=== PATIENT | female | born 1960 | race Caucasian/White ===

== ENCOUNTER 2020-12-30 06:14 | Inpatient (IN) ==
[2020-12-30] MEDS ORDERED: *HR* Propofol 200 MG/20 ML VIAL IVP ONE ×2 (06:25)
[2020-12-30] MEDS ORDERED: *HR* FentaNYL (PF) 100 MCG/2 ML VIAL ONE (06:26)
[2020-12-30] MEDS ORDERED: *HR* Midazolam HCl 2 MG/2 ML VIAL ONE (06:26)
[2020-12-30] MEDS ORDERED: Lidocaine -MPF 2% 2 ML VIAL ONE ×2 (06:30→06:31)
[2020-12-30] MEDS ORDERED: Lidocaine HCL 4 ML Topical Solution (Laryng-O-Jet Kit Sterile Pak) TP ONE (06:30)
[2020-12-30] MEDS ORDERED: *HR* Rocuronium Bromide 50 MG/5 ML VIAL ONE ×2 (06:30→09:03)
[2020-12-30] MEDS ORDERED: Ondansetron 4 MG/2 ML VIAL ONE (06:30)
[2020-12-30] MEDS ORDERED: *HR* Succinylcholine 200 MG/10 ML VIAL IVP ONE (06:30)
[2020-12-30] MEDS ORDERED: *HR* Phenylephrine 10 MG/ML VIAL ONE (06:30)
[2020-12-30] MEDS ORDERED: Acetaminophen IV 1,000 MG/100 ML BAG IVPB ONE (06:45)
[2020-12-30] MEDS ORDERED: *HR* Vasopressin 20 UNIT/ML VIAL ONE (06:45)
[2020-12-30] MEDS ORDERED: CeFAZolin Syr 2,000MG/20 ML 2,000 MG/20 ML SYRINGE IVPB ONE (06:50)
[2020-12-30] MEDS ORDERED: *HR* Magnesium Sulfate 1 GM/2 ML VIAL ONE (07:00)
[2020-12-30] MEDS ORDERED: Ringers Solution, Lactated 1,000 ML IVC SCH ×2 (07:00→07:15)
[2020-12-30] MEDS ORDERED: Ondansetron 4 MG/2 ML VIAL IVP PRN ×2 (07:06→12:19)
[2020-12-30] MEDS ORDERED: *HR* OxyCODONE Immed Rel 5 MG TABLET PO PRN (07:06)
[2020-12-30] MEDS ORDERED: Sugammadex Sodium 200 MG/2 ML VIAL IV ONE (09:24)
[2020-12-30] MEDS ORDERED: *HR* HYDROMORPHONE 2 MG/ML VIAL ONE (09:25)
[2020-12-30] MEDS: *HR* FentaNYL (PF) 100 MCG/2 ML VIAL IVP PRN ×3 (10:40→10:55)
[2020-12-30] MEDS ORDERED: Dextrose Gel 15 GM/37.5 ML TUBE PO PRN ×2 (12:19)
[2020-12-30] MEDS ORDERED: *HR* Dextrose 50 % in Water (Vial) 50 ML VIAL IVP PRN (12:19)
[2020-12-30] MEDS ORDERED: Naloxone 0.4 MG/ML INJ IVP PRN (12:19)
[2020-12-30] MEDS ORDERED: Insulin LISPRO 300 UNITS/3 ML VIAL SUBQ SCH (12:19)
[2020-12-30] MEDS ORDERED: SUMAtriptan succinate 50 MG TABLET PO PRN (12:19)
[2020-12-30] MEDS ORDERED: D5% in Water 1,000 ML IVC PRN (12:19)
[2020-12-30] MEDS: Ipratropium/Albuterol Neb 3 ML IH SCH ×4 (13:02→23:27)
[2020-12-30] MEDS: *HR* HYDROcodone/Acet 5/325 mg TABLET PO PRN ×2 (13:19→21:05)
[2020-12-30] MEDS: 0.9 % Sodium Chloride 1,000 ML IVC SCH (14:10)
[2020-12-30] MEDS: *HR* Heparin 5,000 UNIT/ML VIAL SQ SCH ×2 (14:10→21:04)
[2020-12-30] MEDS: Ketorolac 15 MG/ML VIAL IVP SCH ×3 (14:11→23:23)
[2020-12-30] MEDS: Pregabalin 50 MG CAPSULE PO SCH ×2 (14:16→21:05)
[2020-12-30] MEDS: Insulin LISPRO 300 UNITS/3 ML VIAL SUBQ SCH ×2 (17:55→19:42)
[2020-12-30] MEDS: Sennosides/Docusate Sodium TABLET PO SCH (21:05)
[2020-12-30] MEDS: Famotidine 20 MG TABLET PO SCH (21:05)
[2020-12-30] MEDS: Topiramate 25 MG TABLET PO SCH (21:05)
[2020-12-30] MEDS: *HR* Metformin 500 MG TABLET PO SCH (21:05)
[2020-12-31] MEDS: 0.9 % Sodium Chloride 1,000 ML IVC SCH (03:48)
[2020-12-31] MEDS: Ipratropium/Albuterol Neb 3 ML IH SCH ×6 (03:56→23:18)
[2020-12-31] MEDS: *HR* Heparin 5,000 UNIT/ML VIAL SQ SCH ×3 (06:02→20:59)
[2020-12-31] MEDS: Ketorolac 15 MG/ML VIAL IVP SCH ×3 (06:02→16:04)
[2020-12-31 06:07] LABS: Hematocrit 34.8 % (35.3-44.9); Hemoglobin 10.9 g/dL (11.5-15.4); Mean Corpuscular HGB Conc 31.3 g/dL (31.6-35.5); Mean Corpuscular Hemoglobin 27.5 pg (28.0-33.3); Mean Corpuscular Volume 87.9 fL (83.0-100.0); Mean Platelet Volume 11.8 fL (9.4-12.4); Platelet Count 253 K/mcL (140-400); Red Blood Count 3.96 M/mcL (3.82-4.97); Red Cell Distribution Width 16.1 % (11.5-14.5); White Blood Count 10.8 K/mcL (4.3-11.1)
[2020-12-31 06:50] LABS: % Iron Saturation 5 % (15-50); BUN/Creatinine Ratio 17 (6-26); Blood Urea Nitrogen 15 mg/dL (8-23); Calcium 8.9 mg/dL (8.6-10.3); Carbon Dioxide 22 mEq/L (23-29); Chloride 110 mEq/L (98-107); Glucose 127 mg/dL (70-105); Iron 22 mcg/dL (50-170); Magnesium 2.1 mg/dL (1.6-2.6); Osmolality,Calculated 292 (280-300); Potassium 4.5 mEq/L (3.5-5.1); Sodium 140 mEq/L (136-145); Transferrin 312 mg/dL (203-362); eGFR For African Americans > 60 (> 60); eGFR For Non-African Americans > 60 (> 60)
[2020-12-31] MEDS: Tiotropium 10 INH DOSE IH SCH (07:39)
[2020-12-31] MEDS: *HR* Metformin 500 MG TABLET PO SCH ×2 (08:14→16:04)
[2020-12-31] MEDS: *HR* HYDROcodone/Acet 5/325 mg TABLET PO PRN ×3 (08:14→20:58)
[2020-12-31] MEDS: Sennosides/Docusate Sodium TABLET PO SCH ×2 (08:14→20:58)
[2020-12-31] MEDS: Topiramate 25 MG TABLET PO SCH ×2 (08:15→20:58)
[2020-12-31] MEDS: Famotidine 20 MG TABLET PO SCH ×2 (08:15→20:58)
[2020-12-31] MEDS: Pregabalin 50 MG CAPSULE PO SCH ×3 (08:15→20:59)
[2020-12-31] MEDS: Insulin LISPRO 300 UNITS/3 ML VIAL SUBQ SCH ×4 (08:15→20:46)
[2021-01-01] MEDS: Ketorolac 15 MG/ML VIAL IVP SCH ×5 (00:10→23:13)
[2021-01-01] MEDS: Ipratropium/Albuterol Neb 3 ML IH SCH ×2 (03:25→07:44)
[2021-01-01] MEDS: *HR* Heparin 5,000 UNIT/ML VIAL SQ SCH ×3 (05:52→21:41)
[2021-01-01] MEDS: Insulin LISPRO 300 UNITS/3 ML VIAL SUBQ SCH ×4 (07:40→19:54)
[2021-01-01] MEDS: Tiotropium 10 INH DOSE IH SCH (07:44)
[2021-01-01] MEDS: *HR* Metformin 500 MG TABLET PO SCH ×2 (07:44→15:14)
[2021-01-01] MEDS: Sennosides/Docusate Sodium TABLET PO SCH ×2 (07:45→19:55)
[2021-01-01] MEDS: Famotidine 20 MG TABLET PO SCH ×2 (07:45→19:55)
[2021-01-01] MEDS: *HR* HYDROcodone/Acet 5/325 mg TABLET PO PRN ×3 (07:45→19:55)
[2021-01-01] MEDS: Topiramate 25 MG TABLET PO SCH ×2 (07:45→19:55)
[2021-01-01] MEDS: Pregabalin 50 MG CAPSULE PO SCH ×3 (07:45→19:54)
[2021-01-01] MEDS ORDERED: Menthol 1 EACH LOZENGE PO PRN (18:48)
[2021-01-02] MEDS: Ipratropium/Albuterol Neb 3 ML IH PRN ×3 (00:03→10:48)
[2021-01-02] MEDS: Ketorolac 15 MG/ML VIAL IVP SCH ×4 (06:07→23:48)
[2021-01-02] MEDS: *HR* Heparin 5,000 UNIT/ML VIAL SQ SCH ×3 (06:07→20:50)
[2021-01-02] MEDS: Insulin LISPRO 300 UNITS/3 ML VIAL SUBQ SCH ×4 (08:01→20:54)
[2021-01-02] MEDS: *HR* HYDROcodone/Acet 5/325 mg TABLET PO PRN ×3 (08:07→22:17)
[2021-01-02] MEDS: Famotidine 20 MG TABLET PO SCH ×2 (08:08→20:52)
[2021-01-02] MEDS: Sennosides/Docusate Sodium TABLET PO SCH ×2 (08:08→20:53)
[2021-01-02] MEDS: Topiramate 25 MG TABLET PO SCH ×2 (08:08→20:52)
[2021-01-02] MEDS: Pregabalin 50 MG CAPSULE PO SCH ×3 (08:08→20:53)
[2021-01-02] MEDS: *HR* Metformin 500 MG TABLET PO SCH ×2 (08:09→15:04)
[2021-01-02] MEDS: Tiotropium 10 INH DOSE IH SCH (10:48)
[2021-01-03] MEDS: *HR* Heparin 5,000 UNIT/ML VIAL SQ SCH (05:46)
[2021-01-03] MEDS: Ketorolac 15 MG/ML VIAL IVP SCH (05:46)
[2021-01-03 06:57] VITALS: BP 146/78
[2021-01-03] MEDS: Insulin LISPRO 300 UNITS/3 ML VIAL SUBQ SCH (07:08)
[2021-01-03] MEDS: Tiotropium 10 INH DOSE IH SCH (07:22)
[2021-01-03] MEDS: Pregabalin 50 MG CAPSULE PO SCH (07:59)
[2021-01-03] MEDS: Topiramate 25 MG TABLET PO SCH (07:59)
[2021-01-03] MEDS: Famotidine 20 MG TABLET PO SCH (07:59)
[2021-01-03] MEDS: Sennosides/Docusate Sodium TABLET PO SCH (07:59)
[2021-01-03] MEDS: *HR* Metformin 500 MG TABLET PO SCH (07:59)
== END 2021-01-03 11:00 | disposition home or self-care (01) | DRG 165 ==
LOC: SAMDAY 06:14 → 2NNU 12:18
PROVIDERS: ADMIT Thoracic Surgery (Cardiothoracic Vascular Surgery); ATTEND Thoracic Surgery (Cardiothoracic Vascular Surgery)